=== PATIENT | male | born 1940 | race Caucasian/White ===

== ENCOUNTER → 2016-09-15 | Day surgery (SDC) | payer OTHER ==
[~2016-09-15] MED LIST: BUPIVACAINE/EPINEPHRINE 0.5% PF 30 ML VIAL ONE; LACTATED RINGER'S 1000 ML INJ 1,000 ML ONE; ONDANSETRON HCL 4 MG/2 ML VIAL IV PUSH ONE; PROPOFOL 200 MG/20 ML AMP IV ONE; TRIAMCINOLONE ACETONIDE 40 MG/ML VIAL ONE; ceFAZolin INJ 1,000 MG VIAL ONE
--- NOTE | 2016-09-15 17:17 | MP ---
cc: CLAUDIA DICKINSON M.D. DATE OF SURGERY: 09/15/2016 PREOPERATIVE DIAGNOSIS: Left knee medial meniscal tear and lateral meniscal tear. POSTOPERATIVE DIAGNOSIS Left knee medial meniscal tear and lateral meniscal tear. 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 Left knee loose bodies. SURGEON Dr. Dickinson. SHEET METAL PRODUCTION WORKER: JESUS MANUEL Flower The surgical procedure was assisted by my Advanced Registered Nurse Practitioner. My LOCK CORNER MACHINE OPERATOR presence was necessary throughout this case for the manipulation and positioning of the surgical extremity. My LOCK CORNER MACHINE OPERATOR was assisting me throughout the duration of this procedure. The skill set of an Advance Registered Nurse Practitioner was medically necessary to complete this procedure. During the surgical case, the certified surgical tech/first assistant was working at the back table and the Advance Registered Nurse Practitioner was directly assisting me. PROCEDURE: Left knee arthroscopy with partial medial meniscectomy, partial lateral meniscectomy, chondroplasty of the medial femoral condyle, chondroplasty of the lateral femoral condyle, and removal of multiple loose bodies. ESTIMATED BLOOD LOSS: Minimal TOURNIQUET TIME: Zero minutes. ANESTHESIA: General. DESCRIPTION OF PROCEDURE: The patient is brought back to the operative theater. General anesthesia was administered. The left lower extremity was prepped and draped in usual sterile fashion. The patient received intravenous antibiotics. We made a standard inferolateral portal followed by inferomedial portal under spinal needle visualization. There was a small joint effusion of clear yellow fluid that was expressed. We found multiple loose bodies in the suprapatellar pouch which were evacuated. There was diffuse grade 2 to grade 3 chondromalacia of the patellofemoral joint. The medial compartment had small inner edge tearing of the medial meniscus. We used an oscillating shaver to debride this. We only removed approximately 10% of the medial meniscus. We found grade 3 chondromalacia of the medial femoral condyle which was diffuse with multiple unstable segments of cartilage. We performed a chondroplasty smoothing these down. Ultimately there was about a moderate amount of cartilage lost from the medial femoral condyle. There was grade 2 to grade 3 chondromalacia of the medial tibial plateau. No chondroplasty was necessary. The anterior cruciate ligament was found to be intact with some injection and synovitis. The lateral compartment had a small area of inner edge tearing of the midbody of the lateral meniscus. Partial lateral meniscectomy is performed with an oscillating shaver removing approximately 10% of the meniscus. We found that there was a very deep fissure within the mid aspect of the lateral femoral condyle which appeared to be acute with large unstable segment of cartilage. We used an oscillating shaver to perform a chondroplasty in this area and a moderate amount of cartilage lost was noted about the lateral femoral condyle after chondroplasty had been completed. There was grade 2 chondromalacia of the lateral tibial plateau. We made sure there were no loose bodies in the gutters, evacuated fluid from the joint, gave interarticular injection of 0.25% Marcaine, followed by 40 mg of Kenalog. The portals were closed with 2-0 Vicryl followed by 3-0 nylon. The leg was dressed. Postop plan is weightbear as tolerated, early range of motion. Claudia Dickinson MD /LOVE /1:31 PM /5:06 PM
== END | disposition home or self-care (01) ==
LOC: ESDC 11:36
PROVIDERS: ATTEND Orthopaedic Surgery
DX: S83.242A Other tear of medial meniscus, current injury, left knee, initial encounter (principal); S83.282A Other tear of lateral meniscus, current injury, left knee, initial encounter; M94.262 Chondromalacia, left knee
CPT/HCPCS: 01400; 29880; J0690; J2405; J3010; J3301; J7120